=== PATIENT | female | born 1940 | race African-American/Black ===

== ENCOUNTER 2019-02-14 23:06 | Emergency (ER) | payer MEDICARE ==
[~2019-02-14] VITALS: Ht 172.7 cm; Wt 117.9 kg
[2019-02-14 23:16] VITALS: BP 142/54
--- NOTE | 2019-02-14 23:16 | NUR ---
PT BIBA TO BED 11.
--- NOTE | 2019-02-15 | NUR ---
78 Y/O FEMALE C/O RECTAL PAIN X TODAY. BIBA FROM HOME. ABD IS ROUND, SOFT, NNONTENDER, AND ACTIVE BS. PT STATES SHE AHD A BM 3 DAYS AND SAYS SHES CONSTIPATED. DENIES ANY N,V,D. RATES PAIN 10/10 AND DESCRIBES IT ACHING. VSS. PT STATES SHE WAS IN A REHAB CENTER FOR A MONTH FOR THIS PROBLEM. LIVES ALONE. UBNABLE TO AMBULATE SINCE 1 MONTH. A & O X4. DENIES ANY BLLOD IN HER STOOL. ALLERGIES: IBUPROFEN, ACETAMINOPHEN, CODEIEN,PROCAINE, DILUDID, OXYCONTIN, MEPERIDINE. PMH: HTN, HIGH CHOLESTEROL, PNA, STROKE (1988), DM.
[2019-02-15] MEDS: LORazepam 0.5 MG TAB PO ONE (00:01)
--- NOTE | 2019-02-15 00:32 | NUR ---
ENVIRONMENTAL ENGINEERING INTERN AT BEDSIDE
--- NOTE | 2019-02-15 00:37 | NUR ---
PT STATES SHE WILL TRY BEDPAN IN 30 MIN TO 1 HOUR. REFUSED STRAIGHT CATH FOR URINE--STATES "ALREADY IN A LOT OF PAIN DOWN THERE".
[2019-02-15 00:38] LABS: BASOPHILS % (AUTO) 0.8 % (0.0-2.0); EOSINOPHILS # (AUTO) 0.1 K/uL (0-0.4); EOSINOPHILS % (AUTO) 2.4 % (0.0-4.0); HEMATOCRIT 33.5 % (36-48); HEMOGLOBIN 11.2 g/dL (12.0-16.0); LYMPHOCYTES # (AUTO) 3.4 K/uL (2.5-16.5); MEAN CORPUSCULAR HEMOGLOBIN 33 pg (27-31); MEAN CORPUSCULAR HGB CONC 33 g/dL (33-37); MEAN CORPUSCULAR VOLUME 97.6 fL (80-94); MONOCYTES # (AUTO) 0.4 K/uL (0.8-1.0); MONOCYTES % (AUTO) 6.6 % (1.7-9.3); NEUTROPHILS # (AUTO) 1.7 K/uL (1.8-7.7); NEUTROPHILS % (AUTO) 29.9 % (42.2-75.2); PLATELET COUNT (AUTO) 322 K/uL (140-450); RED BLOOD CELL COUNT(AUTO) 3.43 MIL/uL (4.20-5.40); RED CELL DISTRIBUTION WIDTH 15.1 % (11.6-13.7); WHITE BLOOD COUNT (AUTO) 5.6 K/uL (4.8-10.8)
[2019-02-15 00:49] LABS: LYMPHOCYTES % (AUTO) 60.3 % (20.5-51.1)
[2019-02-15 00:51] LABS: ANION GAP 7.3 (8-16); CARBON DIOXIDE 29.6 mmol/L (21-32); CHLORIDE 106 mmol/L (98-107); CREATININE 0.9 mg/dL (0.6-1.3); GLUCOSE 101 mg/dL (74-106); POTASSIUM 3.9 mmol/L (3.5-5.1); SODIUM SERUM 139 mmol/L (136-145); UREA NITROGEN, BLOOD 12 mg/dL (7-18)
[2019-02-15 00:54] LABS: ALBUMIN 3.1 g/dL (3.4-5.0); ASPARTATE AMINOTRANSFERASE 22 U/L (15-37); TOTAL BILIRUBIN 0.2 mg/dL (0.0-1.0)
[2019-02-15 01:57] LABS: APPEARANCE,URINE CLEAR (CLEAR); BILIRUBIN,URINE NEGATIVE (NEGATIVE); BLOOD, URINE NEGATIVE (NEGATIVE); COLOR,URINE YELLOW (YELLOW); LEUKOCYTE ESTERASE ,URINE NEGATIVE (NEGATIVE); NITRITE, URINE NEGATIVE (NEGATIVE); PH,URINE 8.5 (5.0-9.0); UGLUCOSE NEGATIVE (NEGATIVE)
[2019-02-15] MEDS ORDERED: LORazepam 2 MG/ML VIAL IM ONE (02:30)
[2019-02-15] MEDS ORDERED: SULF500T6 PO (02:36)
[2019-02-15] MEDS ORDERED: DYR50 PO (02:36)
[2019-02-15] MEDS ORDERED: METF850T PO (02:36)
--- NOTE | 2019-02-15 05:18 | NUR ---
SPOKE TO EMPLOYMENT SPECIALIST GABINO AND SHE CONTACTED ALL SNF FOR PT PLACEMENT BUT, UNFORTUNATELY UNABLE TO TRANSFER PT UNTIL AFTER 0800 TODAY D/T ADMITTING AT OTHER SNF'S WONT BE OPEN UNTIL 0800 TO EVAL PT PAPERWORK TO SEE IF SHE COULD GET ACCEPTED TO ANY SNF.
--- NOTE | 2019-02-15 05:36 | NUR ---
PT REFUSED TO SIGN TRANSFER FORM UNTIL SHE FINDS OUT WHERE SHES BEING PLACED.
--- NOTE | 2019-02-15 05:48 | NUR ---
PT IS LAYING IN BED SLEEPING COMFORTABLY. EQUAL CHEST RISE AND FALL.
--- NOTE | 2019-02-15 07:14 | NUR ---
Andrew zamudio in [facility] - 02/15/19 at 0715 by MELY Pt report given to GALA TOWNSEND. Transfer of care at this time.
--- NOTE | 2019-02-15 07:16 | NUR ---
Pt report given to GALA TOWNSEND. Transfer of care at this time.
--- NOTE | 2019-02-15 07:30 | NUR ---
Pt resting in bed with family at the bedside. Vital signs Stable. Updated pt and family on plan of care. Pt verbalized understanding. Will continue to monitor.
--- NOTE | 2019-02-15 08:38 | NUR ---
Contact Information: Blake (daughter) .
--- NOTE | 2019-02-15 09:32 | NUR ---
Repositioned pt to high fowlers position. Pt eating breakfast tray.
--- NOTE | 2019-02-15 10:17 | NUR ---
Attemped to call [facility] at Placed on hold 4 separate times, left a message for Sary Associate Director Qa
--- NOTE | 2019-02-15 10:40 | NUR ---
Pt placed on bed montesinos. Pericare provided and assisted pt to reposition for comfort.
--- NOTE | 2019-02-15 10:55 | NUR ---
Gave report to Sloane regarding pt transfer to [facility], Room 31-C.
--- NOTE | 2019-02-15 12:11 | NUR ---
[facility] at bedside for transport.
[2019-02-15 12:17] VITALS: BP 134/63
--- NOTE | 2019-02-15 12:17 | NUR ---
Patient to be transferred to [facility]. Is being transferred due to higher level of care. Receiving facility has accepting physician and available space. ER physician has signed transfer form. Patient or responsible libertarian has agreed to transfer and signed form. Patient belongings inventoried and will be sent with patient. Copy of nursing notes, lab reports, EKG, Physicians Orders and X-rays to be sent with patient. Report called to Sloane at receiving facility. [facility] ambulance service has been called for transfer.
--- NOTE | 2019-02-15 12:17 | NUR ---
Pt requested to use bed montesinos. Pericare provided. Transportation Ro[facility] arrived to transfer patient.
== END 2019-02-15 12:17 ==
LOC: MED 23:06
DX: K62.89 Other specified diseases of anus and rectum (principal); K59.00 Constipation, unspecified; R26.2 Difficulty in walking, not elsewhere classified; Z74.1 Need for assistance with personal care; E11.9 Type 2 diabetes mellitus without complications; I25.2 Old myocardial infarction; Z86.73 Personal history of transient ischemic attack (TIA), and cerebral infarction without residual deficits; Z79.84 Long term (current) use of oral hypoglycemic drugs; Z79.899 Other long term (current) drug therapy; Z88.6 Allergy status to analgesic agent; Z88.5 Allergy status to narcotic agent; Z88.8 Allergy status to other drugs, medicaments and biological substances; Z88.4 Allergy status to anesthetic agent
CPT/HCPCS: 36415; 74021; 80053; 81003; 85025; 99284; Q0092; J2060

== ENCOUNTER 2021-12-03 09:28 | Emergency (ER) | payer MEDICARE ==
[~2021-12-03] VITALS: Ht 172.7 cm; Wt 83.9 kg
[~2021-12-03 09:28] MED LIST: DYR50 PO; METF-713 PO; SULF500T6 PO
[2021-12-03 09:38] VITALS: BP 145/82
--- NOTE | 2021-12-03 09:55 | NUR ---
PT AMBULATED TO ER BED 8
--- NOTE | 2021-12-03 10:23 | NUR ---
MD KIRKPATRICK AT BEDSIDE FOR EVALUATION
[2021-12-03] MEDS ORDERED: KETOROLAC 30 MG/ML VIAL IM ONE (10:25)
[2021-12-03] MEDS ORDERED: KETOROLAC 15 MG/ML VIAL ONE (10:27)
--- NOTE | 2021-12-03 10:28 | NUR ---
80YO FEMALE PT C/O SHARP ARM PAIN [id number]. STATES RADIATION DOWN TO R HAND. PRESENTS WITH NON PITTING SWELLING IN R HAND, HOT AND TENDER TO TOUCH. DENIES INJURY TO HAND, NUMBING OR LOSS OF SENSATION. DENIES TAKING MEDICATION FOR PAIN V/D, CHEST PAIN OR SOB. REPORTS DIARRHEA X2-3, DENIES BLOOD OR ABDOMINAL PAIN. PT AAOX4, NO VISIBLE DISTRESS. HOB POSITIONED PER COMFORT. HX:DENIES NKA
--- NOTE | 2021-12-03 10:34 | NUR ---
XRAY AT BEDSIDE
[2021-12-03] MEDS ORDERED: NAPR-1704 PO (11:36)
--- NOTE | 2021-12-03 11:39 | NUR ---
80/F PRESENTS TO ED WITH C/O RIGHT ARM AND HAND PAIN X2 WEEKS. PATIENT DENIES INJURY OR TRAUMA, STATES EPISODES OF SWELLING TO HAND, DENIES TAKING MEDICATION FOR PAIN. DENIES FEVERS, CHILLS, SOB. PATIENT ALSO C/O 2 EPISODES OF DIARRHEA, DENIES TAKING MEDS FOR SYMPTOMS, DENIES N/V, ABD PAIN.
--- NOTE | 2021-12-03 11:44 | NUR ---
VELCRO VOLAR SPLINT APPLIED TO R WRIST. + CMS. PT TOLERATED SPLINT.
[2021-12-03 11:51] VITALS: BP 138/82
--- NOTE | 2021-12-03 11:51 | NUR ---
Patient discharged with v/s stable. Written and verbal after care instructions FOR WRIST PAIN given and explained. Patient alert, oriented and verbalized understanding of instructions. Ambulatory with steady gait. All questions addressed prior to discharge. ID band removed. Patient advised to follow up with PMD. Rx of NAPROXEN given. Opportunity to ask questions provided and answered.
--- NOTE | 2021-12-03 12:03 | NUR ---
The patient's care was reviewed and supervised by Renata Lopez RN.
== END 2021-12-03 11:51 | disposition home or self-care (01) ==
LOC: MED 09:28
DX: S63.501A Unspecified sprain of right wrist, initial encounter (principal); E11.9 Type 2 diabetes mellitus without complications; Z79.899 Other long term (current) drug therapy; Z86.73 Personal history of transient ischemic attack (TIA), and cerebral infarction without residual deficits; Z79.84 Long term (current) use of oral hypoglycemic drugs; Z85.89 Personal history of malignant neoplasm of other organs and systems; Z88.8 Allergy status to other drugs, medicaments and biological substances; Z88.5 Allergy status to narcotic agent; X58.XXXA Exposure to other specified factors, initial encounter; Y93.89 Activity, other specified; Y92.89 Other specified places as the place of occurrence of the external cause; Y99.8 Other external cause status
CPT/HCPCS: 29125; 73110; 96372; 99283; J1885

== ENCOUNTER 2023-11-03 11:28 | Emergency (ER) | payer MEDICARE, OTHER ==
[~2023-11-03] VITALS: Ht 152.4 cm; Wt 73.5 kg
[~2023-11-03 11:28] MED LIST changes: +NAPR-1704 PO
[2023-11-03 11:42] VITALS: BP 169/53; PULSE 46; RESP 18; TEMP 97.4; O2SAT 98
[2023-11-03 13:15] VITALS: BP 119/74; PULSE 81; RESP 17; TEMP 98.3; O2SAT 98
== END 2023-11-03 13:16 | disposition home or self-care (01) ==
LOC: MED 11:28
DX: R00.1 Bradycardia, unspecified (principal); E11.9 Type 2 diabetes mellitus without complications; I10 Essential (primary) hypertension; F03.90 Unspecified dementia, unspecified severity, without behavioral disturbance, psychotic disturbance, mood disturbance, and anxiety; Z86.73 Personal history of transient ischemic attack (TIA), and cerebral infarction without residual deficits; Z79.899 Other long term (current) drug therapy; Z88.8 Allergy status to other drugs, medicaments and biological substances; Z88.5 Allergy status to narcotic agent; Z88.6 Allergy status to analgesic agent; Z88.4 Allergy status to anesthetic agent
CPT/HCPCS: 99281